=== PATIENT | male | born 1970 | race Caucasian/White ===

== ENCOUNTER 2017-11-22 19:07 | Emergency (ER) | payer SELFPAY ==
[2017-11-22 19:21] VITALS: BP 136/92
--- NOTE | 2017-11-22 19:23 | ED Physician Documentation ---
General Adult - HISTORIAN Historian: patient - HPI Stated Complaint: Fit for confinement Chief Complaint: General Adult Onset: hours Timing: still present Further Comments: yes (Pt is a 47 yo male alcoholic brought to ER by law enforcement for "fit for confinement" evaluation. Pt drinks a pack of beer daily and has for at least several months. Pt has had seizures during previous times with alcohol cessation.) - ROS CONST: no problems EYES/ENT: none CVS/RESP: none GI/: nausea MS/SKIN/LYMPH: none NEURO/PSYCH: other (alcohol intoxication) - PAST HX Past History: other (alcohol abuse) Allergies/Adverse Reactions: Allergies Allergy/AdvReac Type Severity Reaction Status Date / Time No Known Allergies Allergy Unverified 11/22/17 19:17 Home Medications: Ambulatory Orders Medication Instructions Recorded NK [NK] 11/22/17 - SOCIAL HX Smoking History: cigarettes Alcohol Use: heavy - FAMILY HX Family History: No - VITAL SIGNS Vital Signs: Vital Signs Temp Pulse Resp BP Pulse Ox 98.5 F 90 18 136/92 96 11/22/17 19:07 11/22/17 19:07 11/22/17 19:07 11/22/17 19:07 11/22/17 19:07 - REVIEWED ASSESSMENTS Nursing Assessment Reviewed: Yes Vitals Reviewed: Yes Progress - Progress Progress: Given pt's seizure hx with alcohol cessation, pt would be fit for confinement only if withdrawal could be prophilaxed or tx'd in confinement. This is not possible per clinical law professor with pt. Pt was taken into custody for a relatively minor offence, such as not paying a bill, the officer says. Pt has a court appearance scheduled for 9 am tomorrow, which apparently is why he was taken into custody, in order to make that appointment. Officer and pt work out a plan for pt to be sure to make his court date tomorrow morning. Pt will not be confined tonight, because he is "unfit for confinement" being a seizure risk. General Adult Physical Exam - PHYSICAL EXAM GENERAL APPEARANCE: alcohol use EENT: eye inspection normal, pharynx normal NECK: normal inspection, supple RESPIRATORY: no resp distress, chest non-tender, breath sounds normal CVS: reg rate & rhythm, heart sounds normal, equal pulses ABDOMEN: soft, no organomegaly, normal bowel sounds BACK: normal inspection, no CVA tenderness SKIN: warm/dry, normal color EXTREMITIES: non-tender, normal range of motion, no evidence of injury NEURO: oriented X3, motor nml, sensation nml Discharge Clincal Impression: Fit for confinement evaluation, alcohol abuse Referrals: Primary Doctor,No [Primary Care Provider] - Condition: Stable Disposition: 01 HOME, SELF-CARE Decision to Admit: NO Decision Time: 19:32
== END 2017-11-22 19:24 | disposition home or self-care (01) ==
LOC: ED 19:07
DX: Z02.89 Encounter for other administrative examinations (principal)
CPT/HCPCS: 99282